=== PATIENT | male | born 1955 | race Caucasian/White ===

== ENCOUNTER 2019-05-22 20:40 | Inpatient (IN) | payer OTHER, MEDICARE ==
[~2019-05-22] VITALS: Ht 185.4 cm; Wt 87.8 kg
[~2019-05-22 20:40] MED LIST: ALBIPROI INH; ALBU90OI INH; CYCL10 PO; FLUSAL2505 INH; HYDCHLSU PO; LEVO750 PO; LISI20 PO; METH10 PO; Neurontin600 MG PO; ONDA4ODT MM; PRED10 PO
[2019-05-22] MEDS ORDERED: MORP60ER PO (21:05)
[2019-05-22] MEDS ORDERED: OXYC5 PO (21:05)
[2019-05-22] MEDS ORDERED: DEXA4 PO (21:05)
[2019-05-22] MEDS ORDERED: Zocor20 MG PO (21:28)
[2019-05-22] MEDS ORDERED: COMBIVENT RESPIM4 GM INH (21:38)
[2019-05-22] MEDS ORDERED: DOCU100 PO (21:43)
[2019-05-22] MEDS ORDERED: BUDE10.22 INH (21:52)
[2019-05-22 22:22] LABS: BASOPHILS ABSOLUTE AUTO 0.05 K/mm3 (0.00-0.23); BASOPHILS PERCENT AUTO 0 % (0-2); EOSINOPHILS PERCENT AUTO 0 % (0-6); Hemoglobin 14.8 g/dL (13.5-17.5); IMMATURE GRAN ABSOLUTE AUTO 0.26 K/mm3 (0.00-0.10); IMMATURE GRAN PERCENT AUTO 1 % (0-1); LYMPHOCYTES ABSOLUTE AUTO 0.85 K/mm3 (0.84-5.20); LYMPHOCYTES PERCENT AUTO 3 % (21-46); MONOCYTES ABSOLUTE AUTO 2.91 K/mm3 (0.16-1.47); MONOCYTES PERCENT AUTO 11 % (4-13); Mean Corpuscular HGB Conc 35.2 g/dL (31.5-36.5); Mean Corpuscular Volume 94 fL (80-100); Mean Platelet Volume 9.6 fL (9.1-12.4); NEUTROPHILS ABSOLUTE AUTO 22.95 K/mm3 (1.96-9.15); NEUTROPHILS PERCENT AUTO 85 % (41-73); Platelet Count 298 K/mm3 (150-400); RDW Coefficient Variation 12.2 % (11.7-14.2); RDW Standard Deviation 42.5 fL (35.1-46.3); Red Blood Cell Count 4.49 M/mm3 (4.30-5.90); White Blood Cell Count 27.02 K/mm3 (4.00-11.30)
[2019-05-22 22:41] LABS: Alanine Aminotransfer (ALT/SGP 69 U/L (12-78); Albumin, Blood 3.1 g/dL (3.4-5.0); Alk Phos 168 U/L (50-136); Anion Gap 10 mmol/L (6-16); Aspartate Aminotrans (AST/SGOT 97 U/L (12-37); Bilirubin, Total 0.5 mg/dL (0.1-1.0); Blood Urea Nitrogen 34 mg/dL (8-24); Bun/Creatinine Ratio 50.7 (12.0-20.0); CO2, Blood 26 mmol/L (21-32); Calcium, Blood 9.1 mg/dL (8.5-10.1); Chloride, Blood 84 mmol/L (98-108); Creatinine, Blood 0.67 mg/dL (0.60-1.20); Globulin, Blood 3.1 g/dL (2.2-4.0); Glomerular Filtration Rate >60 (60-); Glucose, Blood 119 mg/dL (70-99); Sodium, Blood 120 mmol/L (136-145); Total Protein, Blood 6.2 g/dL (6.4-8.2)
--- NOTE | 2019-05-23 00:49 | NUR ---
Transfer report from [facility] on 63 year old MAle DNR/ DNI who has lung cancer with mets to brain verified by head CT in ER. Reported to be on decadron. founfd PT face down in shower unresponsive. Recent med changes. On narcotics. EMS to pick pt up from shower floor saw seizure activity and gave ativan for it. PT will be on seizure and fall precautions and be on bedrest. HAs DNR/DNI status. Oral suction set up due to reported N & V in ER. went home. await admission.
[2019-05-23 03:07] LABS: Hematocrit 41.7 % (37.0-53.0); Hemoglobin 14.7 g/dL (13.5-17.5); Mean Corpuscular HGB 31.9 pg (26.0-34.0); Mean Corpuscular HGB Conc 35.3 g/dL (31.5-36.5); Mean Platelet Volume 9.5 fL (9.1-12.4); Platelet Count 283 K/mm3 (150-400); RDW Coefficient Variation 12.2 % (11.7-14.2); RDW Standard Deviation 40.2 fL (35.1-46.3); Red Blood Cell Count 4.61 M/mm3 (4.30-5.90); White Blood Cell Count 23.56 K/mm3 (4.00-11.30)
[2019-05-23 03:09] LABS: Source, Urine Catheter
[2019-05-23 03:09] LABS: Mean Corpuscular Volume 91 fL (80-100)
[2019-05-23 03:11] LABS: Appearance, Urine Clear (Clear); Bilirubin, Urine Neg (Neg); Blood, Urine Neg (Neg); Color, Urine Yellow (P-Yellow); Glucose Qualitative, Urine Neg (Neg); Ketones, Urine 2+ (Neg); Leukocyte Esterase, Urine Neg (Neg); Nitrite, Urine Neg (Neg); Protein, Urine 1+ (Neg); Specific Gravity, Urine 1.015 (1.003-1.022); Urobilinogen, Urine NORM (Normal)
[2019-05-23 03:28] LABS: Alanine Aminotransfer (ALT/SGP 71 U/L (12-78); Albumin, Blood 3.1 g/dL (3.4-5.0); Alk Phos 175 U/L (50-136); Anion Gap 11 mmol/L (6-16); Aspartate Aminotrans (AST/SGOT 100 U/L (12-37); Bilirubin, Total 0.6 mg/dL (0.1-1.0); Blood Urea Nitrogen 26 mg/dL (8-24); Bun/Creatinine Ratio 53.1 (12.0-20.0); CO2, Blood 27 mmol/L (21-32); Calcium, Blood 8.9 mg/dL (8.5-10.1); Chloride, Blood 84 mmol/L (98-108); Creatinine, Blood 0.49 mg/dL (0.60-1.20); Globulin, Blood 3.1 g/dL (2.2-4.0); Glomerular Filtration Rate >60 (60-); Glucose, Blood 111 mg/dL (70-99); Potassium, Blood 4.6 mmol/L (3.5-5.5); Sodium, Blood 122 mmol/L (136-145); Total Protein, Blood 6.2 g/dL (6.4-8.2)
--- NOTE | 2019-05-23 04:50 | NUR ---
63 YEAR OLD MALE [employer] WITH ADVANCED LUNG CANCER WITH METS TO BRAIN AND BONE FOUND DOWN IN SHOWER. HAS SEIZURE ACTIVITY WHEN EMS PICKED UP. PT IS ABLE TO COMMUNICATE BUT SLOW TO RESPOND AND CONFUSED. aBLE TO STATE NAME AND BIRTHDAY. WIFES NAME IS Tico. dnr STATUS, MEDICATED WITH 0.6 MG DILAUDID. npo AND HAS n z& v DESPITE ZOFRAN IN er AND HERE. BRAIN METS HAS BEEN ON DECADRON. iv DECADRON GIVEN X 1 . RESTLESS PRIOR TO PAIN MED. NOT ACCOMPANT pt TO FLOOR. dnr BAND APPLIED. SEIZURE PRECAUTIONS IN PLACE.
--- NOTE | 2019-05-23 06:26 | NUR ---
pt medicated with 0.6 mg iv dilaudid and 4 mg iv zofran. continues to have N & V green emisis then clear then mod amt coffee ground emisis. Will notify MD of change of color of emisis. had 4 mg iv zofran in ER still vomiting and at risk of aspiration, then sm clear emisis then mod coffee ground color emisis.
--- NOTE | 2019-05-23 06:49 | NUR ---
DR Umanzor updated abd xray stat for nausea and vomiting and coffee ground emisis,. Regjuan daniel also ordered for N & V. Called xrayfor stat xray.
--- NOTE | 2019-05-23 10:26 | NUR ---
DURING CHANGE OF SHIFTD THIS AM PT NAUSEUS, VOMITTING. PT APPEARED PAINFUL WITH MOANING, RESTLESSNESS. PT MEDICATED WITH IV ATIVAN, ZOFRAN, AND DILAUDID. PT PLACED ON SIDE WITH EMESIS BASIN UNDER MOUTH. MEDICATIONS EFFECTIVE PROVIDING COMFORT, VOMMITING CEASED. GABRIELE VELEZ SPOKE WITH PT'S , THE REPORTED THAT THE PT HAD PREVIOUSLY MENTIONED THAT HE WANTED COMFORT CARE AND WAS CURRENTLY ON HOSPICE. PALLIATIVE CARE RN CARLTON NOTIFIED OF THE ABOVE AND SPOKE WITH DR. RIVERA, COMFORT CARE ORDERS WERE RECIEVED.
--- NOTE | 2019-05-23 10:39 | NUR ---
Pt visit this AM. Pt is resting in bed with his eyes closed. Offered gentle voice with no response from Pt. Pt appears to be resting comfortably with no S/S of distress at this time. Discussed case with bedside nurse Erick. Called and spoke with Pt's Renee. Discussed goals of care. Renee states she can not care for Pt in his current condition and wants Pt to remain in the hospital. Discussed possible consequences of Pt remaining in hospital and being on hospice. Suggested to contact [facility] and relay concerns. Instructed Renee to contact palliative care with any questions or concerns. Spoke with direct care worker Candice and relayed Renee's concerns. Palliative Care will remain available.
--- NOTE | 2019-05-23 11:10 | NUR ---
PT BECAME MORE ALERT, VERBALLY C/O PAIN AND NAUSEA. PT MEDICATED PER EMAR, REPOSITIONED, ATTENDS CHANGED. PT IS NOW RESTING COMFORTABLY WITH EYES CLOSED. AT BEDSIDE. MILES [facility]ANEY FROM [facility] AND [facility] WITH PALLITIVE CARE HAVE SPOKEN WITH JUST PRIOR TO THIS NOTE.
--- NOTE | 2019-05-23 11:32 | NUR ---
Pt visit this AM. Pt resting in bed with his eyes closed. Mild anxiety noted as evidenced by shuffling in bed. Pt's Renee and Hospice nurse Jonathan is present during visit. Listened as Renee reports Pt's plan all along has to not pass away at home. Renee as decided to revoke hospice and would like Pt to have a comfortable peaceful passing here at the hospital. Discussed case with bedside nurse Erick. Reported anxiety and discussed medications. Spoke with caremanager Dayana and reported 's wishes. Palliative Care will remain available.
--- NOTE | 2019-05-23 11:44 | NUR ---
PT WITH INCREASED RESTLESSNESS, REPORTS PT HAS RESTLESS LEGS, PRN ATIVAN GIVEN IV.
--- NOTE | 2019-05-23 13:38 | NUR ---
1300 PT APPEARS TO BE PAINFUL, GAURDING ABD, RESTLEES, MOVING LEGS, OCCASSIONAL MOANING, PRN DILAUDID AND ZOFRAN GIVEN. FAN IN PLACE. 1335 PT RESTING IN BED COMFORTABLY WITHOUT S/SX OF DISCOMFORT OR DISTRESS. FAMILY AT BEDSIDE AND AGREE WITH PLAN OF CARE.
--- NOTE | 2019-05-23 14:31 | NUR ---
Patient is lying in bed and sleeping peacefully with Renee and patient's son and his girlfriend, bedside. Patient is nonresponsive so I turn my attention to patient's family. I conduct a life review of patient's life and discuss how they are holding up. I normalize their experience, reinforce helpful attitudes and practices, explore what a meaningful and dignified would look like for the patient, explore the family and the patient's belief systems, provide spiritual guidance, anticipatory grief support and prayer. Patient's family respond well and display evidence of being comforted and having an elevated mood. I will continue to remain available to patient and family.
--- NOTE | 2019-05-23 18:38 | NUR ---
1640 PT RESTLESS, REPORTS YES WHEN ASKED IF PAINFUL, GRIMACING, MOANING, IV DILAUDID AND ATIVAN GIVEN. PT REPORTS YES WHEN ASKED IF NAUSEAS, GAGGING LIKE PRESENTATION, PRN ZOFRAN GIVEN, AT BEDSIDE AND AGREEABLE WITH PLAN OF CARE. PT REPOSITIONED AND INCONTINENCE CARE PERFORMED. 1835 PT RESTING COMFORTABLY IN BED, NO S/SX OF DISCOMFORT OR DISTRESS. HAS GONE HOME FOR THE NIGHT, SHE REQUESTS TO BE NOTIFIED AT ANY TIME IF THERE ARE ANY CHANGES.
--- NOTE | 2019-05-24 06:24 | NUR ---
SHIFT SUMMARY PT IS A 63 Y/O MALE, ADMITTED FOR SEIZURES. PT DID NOT WAKE FULLY DURING THE NIGHT, ONLY ONCE ANSWERING A QUESTION WITH A NOD. HE WAS MEDICATED X 3 WITH PRN IV DILAUDID FOR S/SX PAIN, AND PRN ATIVAN FOR ANXIETY. HE WAS ALSO MEDICATED WITH PRN ZOFRAN AND REGLAN TO PREVENT NAUSEA. NO S/SX OF RESPIRATORY DISTRESS, THOUGH HE WAS MEDICATED ONCE WITH ATROPINE DROPS FOR SECRETIONS. NO OTHER ACUTE CHANGES IN PT CONDITION NOTED. WILL CONTINUE TO MONITOR AND TREAT PER EMAR UNTIL HAND OFF TO DAY SHIFT RN.
--- NOTE | 2019-05-24 07:47 | NUR ---
PATIENT SLEEPING AT THIS TIME, NO S/S OF PAIN OR DICOMFORT. CURRENTLY NO FAMILY AT BEDSIDE. FALL PRECAUTIONS IN PLACE.
--- NOTE | 2019-05-24 09:32 | NUR ---
Pt visit this AM. Pt is resting in bed with his eyes closed. Pt appears dyspneic as evidenced by increased respiratory reate and work of breathing. Pt's Renee is present during visit. Discussed plan of care and Renee reports no concerns at this time. Spoke with bedside nurse Natalie and reviewed medications for symptom management. Palliative Care will remain available.
--- NOTE | 2019-05-24 11:38 | NUR ---
SPOKE WITH CARLTON, PALLIATIVE CARE NURSE ABOUT TREATING AIR HUNGER WHEN PATIENT ALLERGIC TO ROXINOL. CARLTON SUGGESTED GIVING OXYCODONE INSTEAD OF DILAUDID AND A DOSE OF ATIVAN. ATROPINE DROPS GIVEN FOR SECRETIONS. DENIES ANY NEEDS AT THIS TIME. MORE FAMILY MEMBERS TO COME BY THIS AFTEROON.
--- NOTE | 2019-05-24 11:40 | NUR ---
PATIENT MEDICATED FOR PAIN WITH OXYCODONE. PATIENT REPOSITIONED AND ATTENDS CHANGED. OXYCODONE HELPED SLIGHTLY WITH AIR HUNGER.
--- NOTE | 2019-05-24 13:45 | NUR ---
FAMILY AT BEDSIDE. OXYCODONE GIVEN TO TREAT PAIN WHICH HELPED CALM PATIENT. ORAL CARE COMPLETED AND ATTENDS CHECK AND PATIENT REMAINS DRY AT THIS TIME. FAMILY DENIES ANY FURTHER NEEDS.
--- NOTE | 2019-05-24 16:43 | NUR ---
OXYCODONE GIVEN TO TREAT PAIN WITH REILEF. PATIENT CALM AND SLEEPING SOUND. FAMILY AT BEDSIDE. SCOPALAMINE PATCH PLACED BEHIND L EAR. 18G IV TO R FA WNL, FLUIDS RUNNING TKO. PATIENT FELT WARM TO TOUCH, BUT WAS NOT FEBRILE. BLANKETS REMOVED AND FAN PLACED IN ROOM. INSTRUCTED FAMILY TO CALL FOR ASSISTANCE.
--- NOTE | 2019-05-25 06:48 | NUR ---
SHIFT SUMMARY PT IS A 63 Y/O MALE, ADMITTED FOR SEIZURES POSSIBLE R/T STAGE 4 CANCER. HE IS CURRENTLY ON COMFORT CARE, AND ONLY MINIMALLY RESPONSIVE AT TIMES. HE WAS MEDICATED X2 FOR PAIN WITH PRN OXYCODONE. NO S/SX OF ACUTE SOB, NAUSEA OR ANXIETY. NO ACUTE CHANGES IN PT CONDITION NOTED. REPORT GIVEN TO ONCOMING RN.
--- NOTE | 2019-05-25 07:29 | NUR ---
PATIENT RESTLESS AND NODDING YES WHEN ASKED IF HE WAS IN PAIN. MEDICATED WITH OXYCODONE. WARM TO TOUCH, BUT AFEBRILE, COVERS REMOVED AND FAN PLACED IN ROOM. ORAL CARE COMPLETED AND LARGE AMOUNT OF THICK SPUTUM REMOVED FROM MOUTH. PATIENT CALMED WITHIN A FEW MINUTES AFTER RECEIVING MEDICATION. SCOPALAMINE PATCH IN PLACE TO HELP WITH SECRETIONS. CURRENTLY NO FAMILY AT BEDSIDE.
--- NOTE | 2019-05-25 09:15 | NUR ---
NO S/S OF PAIN. BED BATH DONE AND PATIENT REPOSITIONED.
--- NOTE | 2019-05-25 14:35 | NUR ---
PATIENT CHANGED AND REPOSITIONED. VERY PAINFUL WITH TURNING, MEDICATED WITH OXYCODONE. SKIN WARM TO TOUCH, REMOVED COVERS AND PLACED FAN. FAMILY AT BEDSIDE AND DENIES ANY NEEDS AT THIS TIME.
--- NOTE | 2019-05-25 15:50 | NUR ---
Pt visit this afternoon. Pt is resting in bed with his eyes closed and opens them with gentle voice. Pt denies pain and dyspnea at this time. Pt appears comfortable with no S/S of distress at this time. Family present at bed side and express appreciation of care he is receiving. Spoke with bedside nurse Natalie. Natalie reports no concerns at this time. Palliative Care will remain available.
--- NOTE | 2019-05-25 16:45 | NUR ---
PATIENT PREMEDICATED FOR PAIN BEFORE TURNING. FAMILY WAS WANTING A COMBS PLACED TO LIMIT PAIN FROM HAVING TO TURN WITH ATTENDS CHANGES, BUT PATIENT REFUSED. ATTENDS CHANGED AND PATIENT REPOSITIONED, TOLERATED BETTER WITH PAIN COVERAGE. PATIENT AND FAMILY DENY ANY FURTHER NEEDS AT THIS TIME.
--- NOTE | 2019-05-26 06:33 | NUR ---
SHIFT SUMMARY PT IS A 63 Y/O MALE, ADMITTED FOR SEIZURES POSSIBLY R/T METASTATIC CANCER. HE WAS MUCH MORE ALERT AND RESPONSIVE COMPARED TO THE PREVIOUS TWO NIGHTS, AND WAS ABLE TO ANSWER SIMPLE QUESTIONS. HE IS A&O X 2, AND ON BEDREST. HE WAS MEDICATED TWICE FOR PAIN, AND ONCE FOR AIR HUNGER. NO COMPLAINTS OF NAUSEA OR ANXIETY. NO OTHER ACUTE CHANGES IN PT CONDITION NOTED. WILL CONTINUE TO MONITOR AND TREAT PER EMAR UNTIL HAND OFF TO DAY SHIFT RN.
--- NOTE | 2019-05-26 13:31 | NUR ---
Pt visit this afternoon. Pt sitting in chair upon arrival. Assisted bedside nurse and CHAIR LIFT OPERATOR with transfering Pt back to bed. Pt painful during process as evidenced by grimacing and moaning. Bedside nurse Munira administers pain medication. Pt reports feeling comfortable. Palliative Care will remain available.
--- NOTE | 2019-05-26 16:46 | NUR ---
ASKED FOR SOMETHING FOR CONSTIPATION PATIENT DOES NOT HAVE ANYTHING ORDERED. STS WILL ORDER.
--- NOTE | 2019-05-26 17:57 | NUR ---
ALERT TO SELF AND FAMILY. MEDICATED T/O SHIFT FOR PAIN AND AIR HUNGER T/O SHIFT W/GOOD RESULTS. TURNED PRN. USES URINAL INTERMITTENTLY. OFFERED COMBS CATH FOR HIS COMFORT, REFUSES.IV PATENT. WCTM.
--- NOTE | 2019-05-27 04:47 | NUR ---
SHIFT SUMMARY: 63 Y/O MALE HAD RESTLESS NIGHT AT DIFFERENT TIMES WITH PT REQURING REDIRECTION AND REORIENTATION FROM NURSING STAFF, ALERT AND ORIENTED X 1, OCCASIONAL CUSSING AND SWEARING AT STAFF AND ASKING WHERE HIS GLASSES ARE LOCATED, THIS NURSE CALLED HIS SPOUSE AT 0430 PER PATIENT REQUEST (HE WAS UNABLE TO DIAL TELEPHONE NUMBER HIMSELF) WITH ADVISING THIS NURSE AND PATIENT THAT HE GAVE THEM TO HER FOR SAFE KEEPING TO TAKE HOME, SLIGHTLY AGITATED WITH SPOUSE OVER THE PHONE, HOWEVER; WAS ABLE TO MAINTAIN HIS COMPOSURE AND FOUL LANGUAGE WITH HER, C/O OCCASIONAL ABD PAIN RATED 6/10 WITH ROXANOL 20MG SL GIVEN WITH RELIEF FELT, BED ALARM APPLIED, BED LOW POSITION, CALL LIGHT AT SIDE.
[2019-05-27] MEDS ORDERED: oxycodone SL (12:01)
[2019-05-27] MEDS ORDERED: MIRALAX17 GM PO (12:02)
[2019-05-27] MEDS ORDERED: PROM25 PO (12:05)
[2019-05-27] MEDS ORDERED: Transderm-Scop1 EACH TD (12:06)
[2019-05-27] MEDS ORDERED: LORA1 PO (12:08)
[2019-05-27] MEDS ORDERED: ONDA4ODT MM (12:09)
[2019-05-27] MEDS ORDERED: LEVE500 PO (12:10)
--- NOTE | 2019-05-27 15:20 | NUR ---
PT TRANSFERED TO [facility] AT 1515 VIA STRETCHER. PACKET SENT WITH PT. REPORT CALLED PRIOR TO DISCHARGE. PT AOX2 TODAY AND COOPERATIVE OF CARE. PT WAS TREATED FOR PAIN PER EMAR. PT TURNING HIMSELF WITH INSTRUCTION EVERY TWO HOURS. FAMILY PRESENT UPON DISCHARGE. HARD SCRIPTS SENT IN PACKET.
== END 2019-05-27 15:16 | DRG 871 ==
LOC: ER 20:40 → MEDS 23:57 → ENPENDDIS 05-27 11:00 → MEDS 05-27 15:16
PROVIDERS: Emergency Medicine; Nurse Practitioner Acute Care; ADMIT Internal Medicine
DX: A41.9 Sepsis, unspecified organism (principal); G93.41 Metabolic encephalopathy; J18.9 Pneumonia, unspecified organism; E44.1 Mild protein-calorie malnutrition; E87.1 Hypo-osmolality and hyponatremia; C79.31 Secondary malignant neoplasm of brain; C78.7 Secondary malignant neoplasm of liver and intrahepatic bile duct; C79.51 Secondary malignant neoplasm of bone; C77.9 Secondary and unspecified malignant neoplasm of lymph node, unspecified; G91.1 Obstructive hydrocephalus; J44.9 Chronic obstructive pulmonary disease, unspecified; Z85.118 Personal history of other malignant neoplasm of bronchus and lung; W18.2XXA Fall in (into) shower or empty bathtub, initial encounter; Y93.9 Activity, unspecified; Y92.9 Unspecified place or not applicable; Z66 Do not resuscitate; K59.00 Constipation, unspecified; Z51.5 Encounter for palliative care; K59.09 Other constipation; Z79.891 Long term (current) use of opiate analgesic; Z87.891 Personal history of nicotine dependence
CPT/HCPCS: 36415; 70450; 71045; 74018; 80053; 82947; 83735; 84145; 85025; 85027; 87040; 93005; 93010; 94640; 94760; 94762; 96365; 96375; 99285-25; J0696; J1100; J1170; J1650; J2060; J2310; J2405; J2765; J3010; J7030; J7050